=== PATIENT | female | born 1970 | race Two or more races ===

== ENCOUNTER 2023-08-28 12:07 | Outpatient (CLI) | payer OTHER | END 2023-08-28 12:18 | disposition home or self-care (01) | LOC: RAD 12:07 | DX: M16.12 Unilateral primary osteoarthritis, left hip (principal) ==

== ENCOUNTER 2024-05-31 16:47 | Outpatient (CLI) | payer OTHER | END 2024-05-31 16:57 | disposition home or self-care (01) | LOC: RAD 16:47 | PROVIDERS: ATTEND Internal Medicine Pulmonary Disease | DX: J45.909 Unspecified asthma, uncomplicated (principal); J31.0 Chronic rhinitis ==